=== PATIENT | male | born 1995 | race Two or more races ===

== ENCOUNTER 2022-09-09 16:13 | Emergency (ER) | payer MEDICAID ==
[~2022-09-09] VITALS: Ht 167.6 cm; Wt 68.0 kg
[2022-09-09 16:39] VITALS: BP 117/51
--- NOTE | 2022-09-09 17:23 | NUR ---
DR SANFORD AT BEDSIDE FOR EVAL.
[2022-09-09] MEDS ORDERED: IBUP-1953 PO (17:27)
[2022-09-09] MEDS ORDERED: NAPROXEN 500 MG TABLET PO SCH (17:30)
[2022-09-09] MEDS ORDERED: NAPROXEN 250 MG TABLET ONE (17:33)
--- NOTE | 2022-09-09 17:44 | NUR ---
COVID AND INFLUNZA SWABBED DONE. LAB CALLED FOR GROUNDMAN/LINEMAN.
--- NOTE | 2022-09-09 17:45 | NUR ---
DISCHARGE HOME IN STABLE CONDITION.
== END 2022-09-09 17:47 | disposition home or self-care (01) ==
LOC: ER 16:21
DX: J06.9 Acute upper respiratory infection, unspecified (principal); B97.89 Other viral agents as the cause of diseases classified elsewhere; Z20.822 Contact with and (suspected) exposure to COVID-19
CPT/HCPCS: 99283; 87426; 87804; C9803